=== PATIENT | female | born 1950 | race Caucasian/White ===

== ENCOUNTER → 2016-12-09 | Outpatient (CLI) | payer OTHER, BC | LOC: CIMAGING 10:36 | PROVIDERS: ATTEND Internal Medicine | DX: Z12.31 Encounter for screening mammogram for malignant neoplasm of breast (principal) | CPT/HCPCS: G0202 ==

== ENCOUNTER → 2016-12-18 | Outpatient (CLI) | payer OTHER, BC ==
[~2016-12-18] MED LIST: IOPAMIDOL (ISOVUE-300) 100 ML BTL ONE
== END ==
LOC: CIMAGING 14:10
PROVIDERS: ATTEND Physician Assistant
DX: R39.15 Urgency of urination (principal); N39.0 Urinary tract infection, site not specified; N28.1 Cyst of kidney, acquired; K59.00 Constipation, unspecified
CPT/HCPCS: 74178-PO; Q9967

== ENCOUNTER 2017-04-07 01:58 | Emergency (ER) | payer OTHER, BC ==
[2017-04-07] MEDS ORDERED: LET GEL TOPICAL 1 EA SYR TP ONE (02:04)
[2017-04-07 02:11] VITALS: BP 150/96; PULSE 84; RESP 18; TEMP 98.1; O2SAT 97
[2017-04-07] MEDS ORDERED: TDAP ADULT 0.5 ML INJ (BOOSTRIX) IM ONE (02:11)
--- NOTE | 2017-04-07 02:32 | EDPHY ---
H & P Time Seen by Provider: 04/07/17 02:04 HPI/ROS: Chief complaint: regions to left thumb, right hand and right forearm from family pet HPI: 66-year-old female was trying to her dog over, whom she had just assisted to the bed. The dog then bit her in the left hand and right as well, just HYDRAULIC PRESS IN OPERATOR. Right Handed Injury of the left thumb, dorsum of the right hand, webspace 4 on the right hand , and right forearm , from bite from dog This animal is the family Pet Incident was provoked as the patient was trying to move the dog. This happened at home , occurring just HYDRAULIC PRESS IN OPERATOR . Degree of pain: mild Reports there is some numbness or loss of sensation. To the right little finger distal to the puncture wound present at the 4th web space Contamination: from the dog's mouth FB possibility no Status of the animal: Immunization: Rabies vaccination current Animal is well . Animal is available for observation or testing . Last Td or TDAP: more than 5 years less than 10 years Work: Retired intermediate school teacher Avocation: Enjoying senior living PMHx of things that would suggest poor healing: DM no Peripheral Vascular Disease no RA no SLE no Splenectomy no Immunodeficiency no No penicillin allergy ROS: Neuro: No numbness or tingling or loss of sensation Smoking Status: Never smoked Physical Exam: Gen: Well-developed. Well-nourished. No odor of alcohol. Nontoxic. Afebrile. Extremity: There are multiple wounds present. On the left hand: There are multiple lacerations of a horizontal nature present to the proximal phalanx of the left thumb. None of these are gaping. Total length approximately 4 cm the largest being 1.5 cm, 3 in nature. Distal sensation and cap refill is intact. Full functions of the tendons On the right forearm: There is a dermal tear with partial avulsion of the skin on the dorsum of the forearm which she had cleaned home with tap water and baby soap and is in good position at this time. On the right hand: There is a 6 mm v-shaped tear over the midportion of the hand. This is full- thickness but no active bleeding at this time. Full function of the tendons. On the 4th webspace between the 4th and 5th digits there is a single puncture wound which is not gaping. There is numbness and decreased sensation distally on the radial aspect of the 5th digit. Function: Without signs of tendon dysfunction NV Status: Intact, though she does report numbness as noted above CMS: Intact Constitutional: Initial Vital Signs Temperature (C) 36.7 C 04/07/17 02:08 Heart Rate 84 04/07/17 02:08 Respiratory Rate 18 04/07/17 02:08 Blood Pressure 150/96 H 04/07/17 02:08 O2 Sat (%) 97 04/07/17 02:08 O2 Delivery Mode Room Air Allergies/Adverse Reactions: sulfamethoxazole [From Bactrim] Allergy (Mild, Verified 04/07/17 02:07) Rash trimethoprim [From Bactrim] Allergy (Mild, Verified 04/07/17 02:07) Rash Cephalosporins Allergy (Verified 04/07/17 02:07) Home Medications: Medication Instructions Recorded Digoxin 01/24/14 Flovent Diskus 01/24/14 Synthroid 01/24/14 Verapamil 01/24/14 Amoxicillin/Clavulanate Pot 875 mg PO BID #6 tab 04/07/17 [Augmentin 875 MG TAB (*)] Medical Decision Making Procedures: Digital block: Sterile technique, Chloraseptic prep. 1% xylocaine without epinephrine was injected at the base of the left thumb. Adequate anesthesia. ED Course/Re-evaluation: Wounds were cleansed and dressed by the morgue technician Given the circumstances this would be a high degree of risk for infection. No other wounds or gaping thus suture repair is not necessary. Nor advisable. I reviewed the wound management care results at home and she has a recheck in 2 days. As the dog is up-to-date, and the situation was provoked, this does not meet the threshold criteria for rabies vaccination She was given Augmentin 875 mg here in the ER, as well as a Tdap Differential Diagnosis: Diagnostic considerations include, but are not limited to, the following: Laceration, retained FB, tendon injury, fracture, rabies exposure. - Data Points Medications Given: Discontinued Medications Amoxicillin/Clavulanate Potassium (Augmentin 875mg) 875 mg PO EDNOW ONE PRN Reason: Protocol Stop: 04/07/17 02:36 Last Admin: 04/07/17 02:40 Dose: 875 mg Diphtheria/Tetanus/Acell Pertussis (Boostrix) 0.5 ml IM .ONCE ONE Stop: 04/07/17 02:12 Last Admin: 04/07/17 02:24 Dose: 0.5 ml Departure - Departure Disposition: Home, Routine, Self-Care Clinical Impression: Dog bite of hand Qualifiers: Encounter type: initial encounter Laterality: left Qualified Code(s): S61.452A - Open bite of left hand, initial encounter Dog bite of right forearm Qualifiers: Encounter type: initial encounter Qualified Code(s): S51.851A - Open bite of right forearm, initial encounter Dog bite of right hand Qualifiers: Encounter type: initial encounter Qualified Code(s): S61.451A - Open bite of right hand, initial encounter Puncture wound of hand Qualifiers: Encounter type: initial encounter Foreign body presence: without foreign body Laterality: right Qualified Code(s): S61.431A - Puncture wound without foreign body of right hand, initial encounter Condition: Good Instructions: Amoxicillin/Clavulanate Potassium (By mouth), Animal Bite (ED), Laceration (ED), Puncture Wound (ED) Referrals: Patient,NotPresent [Primary Care Provider] - 1-2 days without fail Prescriptions: Amoxicillin/Clavulanate Pot [Augmentin 875 MG TAB (*)] 875 mg PO BID #6 tab
[2017-04-07] MEDS ORDERED: AMOXICILLIN/CLAVULANATE POT 875/125 MG TAB PO ONE (02:35)
== END 2017-04-07 02:45 | disposition home or self-care (01) ==
LOC: CED 01:58
PROC: 3E0T3BZ Introduction of Anesthetic Agent into Peripheral Nerves and Plexi, Percutaneous Approach (ICD-10-PCS; principal; 2017-04-07)
DX: S61.452A Open bite of left hand, initial encounter (principal); S51.851A Open bite of right forearm, initial encounter; S61.451A Open bite of right hand, initial encounter; S61.431A Puncture wound without foreign body of right hand, initial encounter; Z23 Encounter for immunization; W54.0XXA Bitten by dog, initial encounter

== ENCOUNTER → 2017-07-08 | Outpatient (CLI) | payer OTHER | LOC: CIMAGING 10:07 | PROVIDERS: ATTEND Physician Assistant | DX: R39.15 Urgency of urination (principal); N39.0 Urinary tract infection, site not specified; Z90.710 Acquired absence of both cervix and uterus | CPT/HCPCS: 74178; Q9967 ==

== ENCOUNTER → 2017-11-24 | Outpatient (CLI) | payer OTHER | LOC: CIMAGING 10:14 | PROVIDERS: ATTEND Internal Medicine | DX: Z12.31 Encounter for screening mammogram for malignant neoplasm of breast (principal) ==

== ENCOUNTER → 2017-12-03 | Outpatient (CLI) | payer OTHER | LOC: CIMAGING 13:14 | PROVIDERS: ATTEND Internal Medicine | DX: R92.8 Other abnormal and inconclusive findings on diagnostic imaging of breast (principal) ==

== ENCOUNTER → 2017-12-16 | Outpatient (CLI) | payer OTHER | LOC: CIMAGING 13:17 | PROVIDERS: ATTEND Internal Medicine Critical Care Medicine | DX: J43.2 Centrilobular emphysema (principal); J45.909 Unspecified asthma, uncomplicated; R00.0 Tachycardia, unspecified ==

== ENCOUNTER 2018-03-16 14:09 | Inpatient (IN) | payer OTHER ==
[2018-03-16] MEDS ORDERED: GADOBUTROL 10 ML VIAL IVP ONE (14:39)
[2018-03-16] MEDS ORDERED: ONDANSETRON 4 MG/2 ML VIAL IVP PRN (16:08)
[2018-03-16] MEDS ORDERED: ONDANSETRON DISINTEGRATING 4 MG TAB PO PRN (16:08)
--- NOTE | 2018-03-16 16:35 | PDGENHP ---
History and Physical - Chief Complaint Double vision - History of Present Illness Erna Charles is a 67 yo F with a PMHx of hypothyroidism who presents to [facility] for evaluation of double vision. Patient has been having neurological w/u performed since December 2017 due to neuropathy and weakness in upper and lower extremities. She had imaging of spine which showed DJD but no acute explanation. She was placed on steroids which helped her symptoms with the last dose about a week ago. Since then she has been having headache which is clustered around her L eye with double vision, tearing, and rhinorrhea. She called her neurologist who ordered an MRI for today which had concerning findings so neurology asked for patient to be admitted. History Information - Allergies/Home Medication List Allergies/Adverse Reactions: sulfamethoxazole Allergy (Unknown, Unverified 02/20/18 16:33) Rash trimethoprim Allergy (Unknown, Unverified 02/20/18 16:33) Rash Cephalosporins Allergy (Verified 04/07/17 02:07) Home Medications: FLUoxetine [Prozac 20 MG (*)] 20 mg PO DAILY 03/16/18 [Last Taken Unknown] Fluticasone Nasal [Flonase Nasal [place] (RX)] 1 sprays NASAL DAILY 03/16/18 [ Last Taken Unknown] Fluticasone/Vilanterol [Breo Ellipta 100-25 Mcg INH] 1 each IH 03/16/18 [Last Taken Unknown] Gabapentin [Neurontin 100 MG (*)] 100 mg PO 03/16/18 [Last Taken Unknown] Levothyroxine [Synthroid 125 mcg (*)] 125 mcg PO DAILY06 03/16/18 [Last Taken Unknown] Verapamil ER [[place]an SR/ER 240MG (*)] 240 mg PO DAILY8 03/16/18 [Last Taken Unknown] predniSONE [Prednisone] 20 mg PO 03/16/18 [Last Taken Unknown] I have personally reviewed and updated: family history, medical history, social history, surgical history - Surgical History Reports: no pertinent surgical hx - Family History Additional family history: Sjogrens, Hypothyroidm, RA in sister - Social History Smoking Status: Never smoked Review of Systems Review of Systems: Physical Exam Physical Exam: Assessment & Plan Assessment: Double Vision/ Abnormal MRI Findings - Neuro called to admit patient, has been following patient since December 2017 - MRI performed today shows extensive background white matter disease assoc with 2 small punctate areas of diffusion restruction in R frontal and L parietal regions concerning for possible microinfarctions - Per Neuro there is a concern for vasculitis, serologies have been ordered - CTA Head/Neck also ordered - Neurology considering LP which patient is deferring at this time - 1g Solumedrol ordered by Neurology - Pain medications PRN Hypothyroidism - Continue home Synthroid Unspecified Tachycardia - HR currently 69 - Continue home Verapamil FEN: IVF Ppx: Lovenox Code: FULL Dispo: Admit to Medicine
[2018-03-16] MEDS: methylPREDNISolone SOD SUCC 1 GM in D5W 100 ML IV SCH (18:24)
[2018-03-16] MEDS: ACETAMINOPHEN 325 MG TAB PO PRN (18:24)
[2018-03-16 18:37] LABS: PLATELET COUNT 337 10^3/uL (150-400)
--- NOTE | 2018-03-16 18:48 | GCON ---
NEUROLOGY CONSULTATION REFERRING PHYSICIAN: Wade Seymour DO HISTORY: The patient is a 67-year-old woman who we first saw in the office in December. She started having symptoms 2 months earlier when she said she was working in the yard and feeling generally fine. A few days later, she had neck pain and then left posterior rib cage. Symptoms improved but then she had pain that was deeper and posterior pelvic and lumbar region pain. She was having difficulty with strength in her legs with descriptions of weakness. This gradually progressed to more burning sensation in the posterior thighs. In mid December, she was having numbness in her left anterior thigh and into her toes. On the right side she was also having numbness in her toes and calf. There was burning in her feet as well as the right hand. She was describing stiffness in the wrists. She was not noticing any incontinence. She was feeling some variation of the strength and a little bit better power when she did get to our office January 15. She was not having much of a response to aspirin. She had lumbar spine imaging which did not show anything specific. It was noted that she was certainly dealing with significant stress with her spouse being diagnosed with advanced cancer just a few weeks before her symptoms started. At the time of that visit, we documented that there were no abnormal motor movements. There was not definitive weakness. Sensation was preserved in the upper extremities, and there was perhaps a little decrease in the right calf compared to the left. The reflexes were 2+ in the upper extremities, but absent in the lower extremities, and the cranial nerve exam was unremarkable. We then arranged for her to have EMG, which showed evidence of motor-predominant axonal-type neuropathy raising the possibility of a motor neuropathy or a possible axonal variant of Guillain-[place] syndrome. We saw her again February 19. She was having more back spasms. There was pain in the low back and into the thighs. She was having some feelings of fatigue and dizziness , but quite variable. She had a stretch of about 10 days where she did really well, but then in the last 2 weeks prior to that visit, February 19, she was starting to decline again. She was getting verapamil for atrial tachycardia. Gabapentin was tried for some of the pain, but she was getting lightheaded and stopped it. At that time in the visit, we gave her 3 days of IV Solu-Medrol with 12-day oral taper. The thinking was this might be an autoimmune process or variation of Guillain-[place] syndrome or chronic inflammatory demyelinating polyneuropathy (CIDP). On March 11, she returned to the office. She had significant improvement in symptoms and was feeling more mobile and less spasms in the low back and was not having any pain at that point. She was describing mild double vision. She said some of that predated the use of steroids and gabapentin. She was continuing with physical therapy and reporting some poor balance in general. At that point, the plan was to continue to monitor her off the steroids. She had also had thoracic MRI showing a small disk protrusion at T6-T7, but nothing else specific. She contacted us today in the office and was explaining that she is having severe pain in the left eye intermittently with sharp pains episodically and tearing and runny nose on the left. She is having double vision. She has taken some aspirin but not really noticed significant control of symptoms. We decided to obtain a stat brain MRI and that shows multiple areas of chronic white matter change and then some subtle diffusion abnormalities in the high right frontal lobe and left parietal lobe, suggesting the possibility of more recent ischemic change of an acute nature. 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 Once we had this data obtained, we felt it was appropriate to admit her to the hospital for acute evaluation to consider the possibility of vasculitis or a source of ischemia. PAST MEDICAL HISTORY: Notable for pulmonary aspergillosis, asthma, atrial tachycardia, benign positional vertigo, lumbar disk disease at the L5-S1 level, palpitations, retinal detachment on the left as well as on the right in 1999 and 2009 and a vitreal leak with hemorrhage. She has had hysterectomy, arthroscopic left knee surgery, cataracts, sinus surgery. FAMILY HISTORY: Rheumatoid arthritis in a sister. Father with dementia. Sister with obsessive-compulsive disorder. Father had subdural hematoma. A sister with Sjogren syndrome. Mother had a stroke in her 90s. SOCIAL HISTORY: She is . She has 1 or 2 drinks of alcohol per day on average. She normally exercises with regular walking. She quit smoking in 1972 with a 1 pack per day history. MEDICATION: Aspirin 81 mg daily, Breo Ellipta, Cardizem, Synthroid, verapamil, Xopenex, Estrace, Singulair, Nasonex, calcium. ALLERGIES: Cephalexin, sulfa. PHYSICAL EXAMINATION: VITAL SIGNS: Blood pressure 131/75, pulse of 69, respirations 16, temperature 37.2. HEENT: The pupils are 3 mm and reactive. Extraocular movements are intact, although she complains of double vision in all directions of gaze. No obvious visual field loss or loss of visual acuity. Normal facial sensation and strength. NEURO: The motor exam reveals normal muscle bulk and tone but 4/5 proximal strength in the lower extremities. Sensation is diminished distally in the lower extremities for pinprick, temperature, and vibration. Reflexes are absent at the ankles with no Babinski signs, and trace reflexes at the knees and 1+ in the upper extremities to +2. CARDIAC: Regular rate and rhythm. No murmur. No carotid bruits. Additional history was clarified from the patient. She says that symptoms began 4 days ago when she was having the acute left eye pains and these were coming with 10/10, shooting pain associated with watering of the eye and burning of the left nostril. She would then have residual aching pain which could last for many minutes or hours. She was having these intermittent attacks throughout the last 4 days and getting partial relief when she did Tylenol. She really started having profound double vision in the last 24 hours in all directions of gaze. She has never had this kind of acute attack of pain before. In addition to the previously described differential diagnosis, we may very well also be dealing with a left trigeminal autonomic cephalgia such as cluster headache or SUNCT. These syndromes could occur independently or be associated with a primary inflammatory condition. I reviewed the imaging studies with her and detailed questions about the current workup and diagnostic considerations and treatment approach. We will continue to monitor her closely. The total unit time was 70 minutes. IMPRESSION: The current impression is that the patient is experiencing subacute worsening of a condition that has been evolving over the last few months with suspicion for potential autoimmune etiology based on the clinical story, as well as EMG findings and the fact that she has had initially a fairly good response to steroid therapy. Although nonspecific, there is a strong family history of autoimmune disease in first-degree relatives. She does not currently have a formal rheumatologic diagnosis established. She has asthma. The findings on the brain MRI are concerning for chronic microvascular disease, but also a few nonspecific lesions in the high right frontal and left parietal with some characteristics suggesting possible subacute ischemia. This would further raise concerns about vasculitis, if there is in fact an autoimmune process. To better investigate this, I will obtain CT angiogram of the head and neck. I will likely obtain lumbar puncture as well and consider further empiric therapy with IV steroid and then check an array of inflammatory serum markers, as we try to determine the unifying diagnosis for this fairly broad set of symptoms and findings. /[id number]/MODL and [id number]/MODL JOSHUA
[2018-03-16] MEDS ORDERED: IOPAMIDOL (ISOVUE 370) 100 ML BTL IV ONE (19:06)
--- NOTE | 2018-03-16 21:04 | GCON ---
ADDENDUM: An addendum to my history and physical I started on Erna Charles about 30 minutes ago. PHYSICAL EXAMINATION: VITAL SIGNS: Blood pressure 131/75, pulse of 69, respirations 16, temperature 37.2. HEENT: The pupils are 3 mm and reactive. Extraocular movements are intact, although she complai ns of double vision in all directions of gaze. No obvious visual field loss or loss of visual acuity. Normal facial sensation and strength. NEURO: The motor exam reveals normal muscle bulk and tone but 4/5 proximal strength in the lower extremities. Sensation is diminished distally in the lower extremi ties for pinprick, temperature, and vibration. Reflexes are absent at the ankles with no Babinski sig ns, and trace reflexes at the knees and 1+ in the upper extremities to +2. CARDIAC: Regular rate and rhythm. No murmur. No carotid bruits. Additional history was clarified from the patient. She says that symptoms began 4 days ago when she w as having the acute left eye pains and these were coming with 10/10, shooting pain associated with wa tering of the eye and burning of the left nostril. She would then have residual aching pain which cou ld last for many minutes or hours. She was having these intermittent attacks throughout the last 4 da ys and getting partial relief when she did Tylenol. She really started having profound double vision in the last 24 hours in all directions of gaze. She has never had this kind of acute attack of pain b efore. In addition to the previously described differential diagnosis, we may very well also be dealing with a left trigeminal autonomic cephalgia such as cluster headache or SUNCT. These syndromes could occur independently or be associated with a primary inflammatory condition. I reviewed the imaging studies with her and detailed questions about the current workup and diagnostic considerations and treatment approach. We will continue to monitor her closely. The total unit time was 70 minutes. c/p ITS #[id number] /[id number]/MODL
[2018-03-17] MEDS: ACETAMINOPHEN 325 MG TAB PO PRN ×2 (05:59→17:01)
--- NOTE | 2018-03-17 07:45 | NEUROPROG ---
Assessment: Total unit time of 25 min. The patient is doing better after day 1/3 IV solumedrol. Still considering inflammatory process with increased RF and normal sed rate and borderline elevated CRP. prominent eosinophilia. Not sure of diagnosis and may be in the primary rheumatologic category but still several labs pending. Her improvement is encouraging and doubt vasculitis at this point. White matter lesions not explained yet. Will obtain Echo with bubble study and try to talk to rheumatology. I feel continue hospitalization is appropriate given the severity of symptoms and need for IV steroids though improving so far. Subjective: Pt is reporting that she has not had significant headache or eye pain since admission. She is noting some diplopia that she feels is better. Mild numbness in the right leg. Objective: Vital Signs Temp Pulse Resp BP Pulse Ox 36.9 C 66 16 103/62 94 03/17/18 04:00 03/17/18 04:00 03/17/18 04:00 03/17/18 04:00 03/17/18 04:00 Laboratory Results 03/16/18 18:15 03/16/18 18:15 03/16/18 03/17/18 03/18/18 05:59 05:59 05:59 Intake Total 950 Balance 950 Alert and attentive with clear and fluent speech. Normal cognition. EOMI. facial sensation is preserved Laboratory Tests 03/16/18 03/16/18 18:15 18:15 WBC 9.03 Hct 35.6 L Eos % (Auto) 34.3 H Absolute Eos (auto) 3.10 H ESR 9 C-Reactive Protein 10.6 H Rheum Factor Semi-Quant 82.9 H Mild proximal LE weakness and distal sensory deficits. CTA of head and neck show know evidence of stenosis or vasculitis Allergies/Adverse Reactions: sulfamethoxazole Allergy (Unknown, Verified 03/16/18 18:45) Rash trimethoprim Allergy (Unknown, Verified 03/16/18 18:45) Rash Cephalosporins Allergy (Verified 03/16/18 18:45) Bryant
[2018-03-17] MEDS: methylPREDNISolone SOD SUCC 1 GM in D5W 100 ML IV SCH (08:36)
[2018-03-17] MEDS ORDERED: ENOXAPARIN 40 MG/0.4 ML SYR SC SCH (09:00)
[2018-03-17] MEDS ORDERED: PERFLUTREN LIPID MICROSPHERES 1.1 MG/ML VIAL IV ONE ×2 (10:30→16:15)
--- NOTE | 2018-03-17 11:22 | PDMN ---
Medical Necessity Medical necessity: Pt meets IP criteria per MD; est los >2 mn for eval/tx of worsening double vision & bilateral upper/lower extremity weakness w/abnormal MRI & suspicion of potential autoimmune etiology; requiring further workup/ monitoring, Neuro consult, IV Solu-Medrol & therapies; per H&P & order 03/16/18
[2018-03-17] MEDS ORDERED: NS 1,000 ML IV ONE (12:30)
--- NOTE | 2018-03-17 12:58 | HOSPPROG ---
Hospitalist Progress Note Assessment/Plan: ASSESSMENT: 67yo F with history of pulmonary aspergillosis, asthma, nasal polyps brought in after brain MRI showed extensive background white matter disease associated with 2 small punctate areas of diffusion restriction. Neurology has been seeing her since 12/2017 for onset of various neurologic symptoms including proximal muscle weakness, decreased lower extremity sensation and reflexes. She recently had developed diplopia and severe left facial pain. Prior EMG showed motor-predominant axonal-type neuropathy. Her symptoms have previously responded to high dose steroids. Her MRI did not show optic neuritis or significant evidence of demyelination. Work up here has shown peripheral eosinophilia (which is significantly increased since 2014), significantly elevated RF, mildly elevated CRP, normocytic anemia (which is new from 2013). CTA head/neck did not show evidence of vasculitis. UA is without protein or blood. Per cardiology, TTE shows a small rounded mass in the LV apex. The etiology of these findings remains elusive. Differential includes variant of Guillain-[place], CIDP, Lyme disease, sarcoidosis, paraneoplastic disease. It is unclear to me if her h/o pulmonary aspergillosis, which was not treated as she was not immunocompromised, and new eosinophilia are connected with her neurologic issues. PLAN: - LP planned for tomorrow with routine studies, MS panel, cytology, Lyme antibody screen - ALESSANDRA to evaluate LV mass - Hold on systemic anticoagulation as low suspicion for LV thrombus - Continue 1g IV solumedrol currently day 2/3 with planned taper as outpatient - Follow up anti-CCP, ANCA, JAMMIE, anti-SSa/SSb - Check CK, B1, Lyme serum PCR - Hold ppx LMWH for procedure Dispo: Remain inpatient for management of above, IV steroids. Subjective: Feeling about the same as admission. Still having double vision. No new weakness/numbness or other neuro symptoms.She has noticed some leg swelling since starting steroids. Had trouble sleeping last night. Objective: Vital Signs Temp Pulse Resp BP Pulse Ox 36.4 C 87 18 109/66 99 03/17/18 12:00 03/17/18 12:00 03/17/18 12:00 03/17/18 12:00 03/17/18 12:00 Laboratory Results 03/16/18 18:15 03/16/18 18:15 03/16/18 03/17/18 03/18/18 05:59 05:59 05:59 Intake Total 950 Balance 950 - Physical Exam Constitutional: no apparent distress, appears nourished, not in pain Eyes: other (Right eye patch) Ears, Nose, Mouth, Throat: moist mucous membranes, hearing normal, ears appear normal, no oral mucosal ulcers Cardiovascular: regular rate and rhythym, no murmur, rub, or gallop Respiratory: no respiratory distress, no rales or rhonchi, clear to auscultation Gastrointestinal: normoactive bowel sounds, soft, non-tender abdomen, no palpable masses Skin: no rashes or abrasions, no fluctuance, no induration Musculoskeletal: full muscle strength, no muscle tenderness, normal joint ROM Neurologic: AAOx3, CN II-XII Intact, other (4+/5 strenght in proximal BLE, decreased sensation to light touch in feet, no ankle clonus, diminished but symmetric patellar reflexes bilaterally) Psychiatric: interacting appropriately, not anxious, not encephalopathic, thought process linear ICD10 Worksheet Patient Problems: Problems Problem Status Onset Diplopia Acute Headache around the eyes Acute
[2018-03-17] MEDS: LEVOTHYROXINE 125 MCG TAB PO SCH (13:32)
[2018-03-17] MEDS: Fluticasone/Vilanterol [Breo Ellipta 100-25 Mcg Inh] 1 EACH IH SCH (14:24)
[2018-03-17] MEDS: VERAPAMIL ER 240 MG TAB PO SCH (14:25)
--- NOTE | 2018-03-17 14:27 | ASMTCMCOM ---
CM Note CM Note Notes: Pt in for possible vasculitis after double vision/abnormal MRI. Pt has neurologist Pt on day 1/3 of IV steroid. Pt resides with spouse who can assist at d/c. OT rec home/outpatient, PT rec home. FC identified pt has Medicare B only and [place] [employer]. Pt likely independent d/c. CM available for changes/needs. Date Signed: 03/17/2018 02:26 PM Electronically Signed By:DAVID Ariza
--- NOTE | 2018-03-17 15:34 | ECHO ---
[email or web address] [address] [address] Main: [phone] Fax: Transthoracic Echocardiogram Name: ELISE BOB MR#: [id number] Study Date: 03/17/2018 Study Time: 10:04 AM Date of : 1950 Age: 67 year(s) Height: 167.6 cm (66 in.) Weight: 62.6 kg (138 lb.) BSA: 1.71 m2 Gender: Female Examination: Echo with Definity Indication: headache and diplopia and white matter brain lesions of unknown cause Image Quality: Adequate Contrast: 0.165 mg I.V. dose of Definity was administered to improve endocardial border definition. Requested by: Thiago Perla BP: 113 mmHg/68 mmHg Heart Rate: Rhythm: Indication: headache and diplopia and white matter brain lesions of unknown cause Procedure Staff Air Motor Repairer: Tasha Browning [facility] Reading Physician: Sruthi Cui MD Requesting Provider: Conclusions: Normal size left ventricle. No LV hypertrophy. Normal global systolic LV function. The ejection fraction is visually estimated to be 55 %. No regional wall motion abnormality. Normal diastolic LV function. With Definity contrast imaging, there is a rounded semi-mobile lesion in the LV apex. This could be normal endocardium, LV thrombus, or other mass. Recommend ALESSANDRA for further evaluation. Normal size right ventricle. Normal RV function. An agitated saline study was performed and was negative for intracardiac shunting. Mild mitral valve regurgitation is present. Mild tricuspid regurgitation is present. Right ventricular systolic pressure measures 31mmHg. no prior study. Measurements: Chambers Valvular Assessment AV/MV Valvular Assessment TV/PV Normal Normal Normal Name Value Range Name Value Range Name Value Range Ao Camryn (2D): 2.6 cm (1.4 cm-2.6 AV Vmax: 1.37 m/s (1 m/s-1.7 TR Vmax: 2.57 mm/s ( - ) cm) m/s) TR PGmax: 26 mmHg ( - ) IVSd (2D): 0.9 cm (0.6 cm-1.1 AV maxP mmHg ( - ) syst. PAP: 31 mmHg ( - ) cm) AV meanP mmHg ( - ) PV Vmax: 0.95 m/s (0.6 m/s-0.9 LVDd (2D): 4.7 cm (3.9 cm-5.3 HUNG (VTI): 2.4 cm ( - ) m/s) cm) MV E Vmax: 0.80 m/s ( - ) PV PGmax: 4 mmHg ( - ) MV A Vmax: 0.72 m/s ( - ) Patient: ELISE BOB Study Date: 03/17/2018 Page 1 of 3 10:04 AM LVDs (2D): 3.0 cm (2.1 cm-4 MV E/A: 1.11 ( - ) cm) MV PHT: 0.064 s ( - ) LVPWd (2D): 0.9 cm ( - ) MVA (PHT): 3.4 s ( - ) LVOTd 2.0 cm 2.0 cm mm LVEF (MOD4): 64 % (>=55 %) Visual EF: 55 % RVDd(2D): 2.8 cm (1.9 cm-3.8 cmmm) Continued Measurements: Chambers Valvular Assessment AV/MV Valvular Assessment TV/PV Name Value Name Value Name Value LADs: 3.9 cm MV DecTime: 225 m/s CVP (est.): 5 mmHg LADs Lon.2 cm MV E' Septal: 0.10 m/s LA Area: 17.0 cm2 MV E/E' Septal: 8.10 RA Area: 16.3 cm2 MV E/E' Lateral: 5.40 Additional Vessels Name Value Ao Ascendin.9 cm Inferior Vena Cava: 1.2 cm Findings: Left Ventricle: Normal size left ventricle. No LV hypertrophy. Normal global systolic LV function. The ejection fraction is visually estimated to be 55 %. No regional wall motion abnormality. Normal diastolic LV function. With Definity contrast imaging, there is a rounded semi-mobile lesion in the LV apex. This could be normal endocardium, LV thrombus, or other mass. Recommend ALESSANDRA for further evaluation. Right Ventricle: Normal size right ventricle. Normal RV function. Left Atrium: The left atrium is normal in size. An agitated saline study was performed and was negative for intracardiac shunting. Right Atrium: The right atrium is normal in size. Mitral Valve: The mitral valve is normal in appearance and function. Mild mitral valve regurgitation is present. No mitral stenosis is present. Aortic Valve: The aortic valve is tri-leaflet. There is no significant aortic valve regurgitation. No aortic valve stenosis is present. Tricuspid Valve: The tricuspid valve is normal in appearance and function. Mild tricuspid regurgitation is present. The pulmonary artery pressure is normal. Right ventricular systolic pressure measures 31mmHg. Pulmonic Valve: The pulmonic valve is normal in appearance and function. Trivial pulmonic valve regurgitation. Aorta: The aorta is normal. Normal size aortic root measuring 2.6 cm. Normal size ascending aorta measuring 2.9 cm. IVC: The IVC is normal sized. Pericardium: No pericardial effusion. No pleural effusion. Patient: ELSIE BOB Study Date: 03/17/2018 Page 2 of 3 10:04 AM (No Signature Object) Patient: ELISE BOB Study Date: 03/17/2018 Page 3 of 3 10:04 AM [id number]
--- NOTE | 2018-03-17 15:47 | PDANEPAE ---
ANE Past Medical History - Cardiovascular History Hx Hypertension: No Hx Arrhythmias: Yes Hx Chest Pain: No Hx Coronary Artery / Peripheral Vascular Disease: No Hx CHF / Valvular Disease: No Hx Palpitations: Yes - Pulmonary History Hx COPD: No Hx Asthma/Reactive Airway Disease: Yes Hx Recent Upper Respiratory Infection: No Hx Oxygen in Use at Home: No Hx Sleep Apnea: No Sleep Apnea Screening Result - Last Documented: Negative - Neurologic History Neurologic History Comment: Guillain-Morrilton syndrome, recent, improving - Endocrine History Hx Diabetes: No Obesity: no ANE Review of Systems Review of Systems: ANE Patient History - Allergies Allergies/Adverse Reactions: sulfamethoxazole Allergy (Unknown, Verified 03/16/18 18:45) Rash trimethoprim Allergy (Unknown, Verified 03/16/18 18:45) Rash Cephalosporins Allergy (Verified 03/16/18 18:45) Hives - Home Medications Home medications: home medication list seen and reviewed Home Medications: Aspirin EC [Aspirin EC 81 mg (*)] 81 mg PO MOWEFR 03/16/18 [Last Taken Unknown] Fluticasone/Vilanterol [Breo Ellipta 100-25 Mcg INH] 1 each IH DAILY 03/16/18 [ Last Taken 03/16/18] Herbals/Supplements -Info Only 1 ea PO DAILY 03/16/18 [Last Taken Unknown] Levothyroxine [Synthroid 125 mcg (*)] 125 mcg PO DAILY06 03/16/18 [Last Taken ] Montelukast Sodium [Singulair 10 mg (*)] 10 mg PO DAILY@1800 03/16/18 [Last Taken 03/15/18] Multivitamins [Multivitamin (*)] 1 each PO DAILY 03/16/18 [Last Taken Unknown] Verapamil ER [Calan SR/ER 240MG (*)] 240 mg PO DAILY8 03/16/18 [Last Taken 03/16] - NPO status NPO Since - Liquids (Date): 03/17/18 NPO Since - Liquids (Time): 10:00 NPO Since - Solids (Date): 03/17/18 NPO Since - Solids (Time): 08:30 - Anes Hx Anes Hx: no prior problems - Smoking Hx Smoking Status: Former smoker ANE Labs/Vital Signs - Labs Result Diagrams: 03/16/18 18:15 09/24/18 18:15 - Vital Signs Blood Pressure: 109/66 Heart Rate: 87 Respiratory Rate: 18 O2 Sat (%): 99 Height: 167.64 cm Weight: 62.596 kg ANE Physical Exam - Airway Neck exam: FROM Mallampati Score: Class 2 Mouth exam: normal dental/mouth exam - Pulmonary Pulmonary: no respiratory distress, no rales or rhonchi, clear to auscultation - Cardiovascular Cardiovascular: regular rate and rhythym, no murmur, rub, or gallop - ASA Status ASA Status: III ANE Anesthesia Plan Anesthesia Plan: MAC
[2018-03-17] MEDS ORDERED: fentaNYL 100 MCG/2 ML INJ IVP PRN (15:55)
[2018-03-17] MEDS ORDERED: PROMETHAZINE HCL 25 MG/ML INJ IVP PRN (15:55)
[2018-03-17] MEDS ORDERED: NALOXONE HCL 0.4 MG/ML INJ IVP PRN (15:55)
[2018-03-17] MEDS ORDERED: ONDANSETRON 4 MG/2 ML VIAL IVP PRN (15:55)
[2018-03-17] MEDS ORDERED: ACETAMINOPHEN 500 MG TAB PO PRN (15:55)
--- NOTE | 2018-03-17 16:05 | PDHPUP ---
History & Physical Update H&P update statement: This history and physical update is based on an assessment of the patient which was completed after admission or registration (within 24 hours), but prior to the surgery/procedure. H&P update: H&P reviewed & patient examined, no change in patient's condition since H&P completed (Reviewed Dr. Seymour's H and P dated 03/16/2018)
[2018-03-17] MEDS ORDERED: PROPOFOL 200 MG/20 ML VIAL ONE ×2 (16:07)
--- NOTE | 2018-03-17 16:40 | POSTANESTH ---
Post Anesthetic Evaluation Cardiovascular Status: Normal, Stable, Similar to Pre-Op Cond Respiratory Status: Normal, Stable, Similar to Pre-op Cond. Level of Consciousness/Mental Status: Can Participate in Eval, Alert and Oriented Pain Control: Adequate, Prn Tx Ordered Nausea/Vomiting Control: Adequate, Prn Tx Ordered Complications Possibly Related to Anesthesia: None Noted
--- NOTE | 2018-03-17 17:10 | ECHO ---
[email or web address] [address] [address] Main: [phone] Fax: Transesophageal Echocardiography Name: ELISE BOB MR#: [id number] Study Date: 03/17/2018 Study Time: 03:59 PM Date of : 1950 Age: 67 year(s) Height: ( ) Weight: ( ) BSA: Gender: Female Examination: ALESSANDRA Indication: possible LV mass Image Quality: Adequate Contrast: 0.165 mg I.V. dose of Definity was administered to improve endocardial border definition. Requested by: Sruthi Cui Heart Rate: Rhythm: BP: / Procedure Staff Computer Terminal Operator: Tasha Browning [facility] Reading Physician: Sruthi Cui MD Requesting Provider: Thiago Perla ALESSANDRA Exam Details Contrast: 0.165 mg I.V. dose of Definity was administered to improve endocardial border definition. Conclusions: Normal global systolic LV function. No regional wall motion abnormality. There is a density in the LV apex most likely consistent with thickened endocardium or trabeculation (normal variant). However, thrombus or LV mass cannot be ruled out. Definity was used to enhance endocardial border definition. Normal size right ventricle. Normal RV function. An agitated saline study was performed and was negative for intracardiac shunting. No thrombus in left appendage. Mild mitral valve regurgitation is present. Mild tricuspid regurgitation is present. Results discussed with Dr. Perla. Recommend cardiac MRI for more definitive evaluation Measurements: Chambers Valvular Assessment AV/MV Valvular Assessment TV/PV Normal Normal Normal Name Value Range Name Value Range Name Value Range Additional Measurements: Patient: ELISE BOB Study Date: 03/17/2018 Page 1 of 2 03:59 PM Findings: Left Ventricle: Normal size left ventricle. Normal global systolic LV function. No regional wall motion abnormality. There is a density in the LV apex most likely consistent with thickened endocardium or trabeculation (normal variant). However, thrombus or LV mass cannot be ruled out. Definity was used to enhance endocardial border definition. Right Ventricle: Normal size right ventricle. Normal RV function. Left Atrium: An agitated saline study was performed and was negative for intracardiac shunting. Left Atrial Appendage: The left atrial appendage is unilobular. Good color flow doppler in the left atrial appendage. No thrombus in left appendage. Mitral Valve: The mitral valve is normal in appearance and function. Mild mitral valve regurgitation is present. Aortic Valve: The aortic valve is tri-leaflet. There is no significant aortic valve regurgitation. Tricuspid Valve: The tricuspid valve is normal in appearance and function. Mild tricuspid regurgitation is present. Pulmonic Valve: The pulmonic valve is normal in appearance and function. l1n (No Signature Object) Patient: ELISE BOB Study Date: 03/17/2018 Page 2 of 2 03:59 PM [id number]
[2018-03-17] MEDS ORDERED: MONTELUKAST SODIUM 10 MG TAB PO SCH (18:00)
[2018-03-17] MEDS ORDERED: MELATONIN 3 MG TAB PO PRN (18:13)
[2018-03-18 04:38] LABS: PLATELET COUNT 292 10^3/uL (150-400)
[2018-03-18 04:59] LABS: CREATINE KINASE 21 IU/L (0-156)
[2018-03-18] MEDS: LEVOTHYROXINE 125 MCG TAB PO SCH (05:08)
[2018-03-18] MEDS: ACETAMINOPHEN 325 MG TAB PO PRN (06:36)
[2018-03-18] MEDS: methylPREDNISolone SOD SUCC 1 GM in D5W 100 ML IV SCH (08:15)
[2018-03-18] MEDS: VERAPAMIL ER 240 MG TAB PO SCH (08:19)
--- NOTE | 2018-03-18 08:47 | NEUROPROG ---
Assessment: Total unit time of 25 min. The patient is doing better after day 1/3 IV solumedrol. Still considering inflammatory process with increased RF and normal sed rate and borderline elevated CRP. prominent eosinophilia. Not sure of diagnosis and may be in the primary rheumatologic category but still several labs pending. Her improvement is encouraging and doubt vasculitis at this point. White matter lesions not explained yet. Will obtain Echo with bubble study and try to talk to rheumatology. I feel continue hospitalization is appropriate given the severity of symptoms and need for IV steroids though improving so far. 03/18/18: At this point, this will be the 3rd day of IV steroids for the patient and she is doing much better but we are going to complete the workup with lumbar puncture to look for any occult pathology. Autoimmunity is the working diagnosis right now but we do not have a more precise diagnosis. Cardiac lesion is thought to be benign but we will get clarification with an MRI of the heart if possible. I do not feel she should be put on anticoagulation. We will continue to await the results of further labs but if everything is stable by the end of the day she could be discharged and continue outpatient steroids. Total unit time today of 25 min. Subjective: This morning, the patient tells me that her double vision has had periods of complete resolution but still not gone all of the time. She is not having any significant pain. No new neurologic symptoms have arisen. Objective: Vital Signs Temp Pulse Resp BP Pulse Ox 36.7 C 82 15 125/72 H 99 03/18/18 07:29 03/18/18 07:29 03/18/18 07:29 03/18/18 08:19 03/18/18 07:29 Laboratory Results 03/18/18 04:26 03/16/18 18:15 03/17/18 03/18/18 03/19/18 05:59 05:59 05:59 Intake Total 950 800 500 Balance 950 800 500 She is alert and fully oriented with no cognitive impairment. Extraocular movements are intact and she did not have double vision in virtually any direction of gaze except for occasional positions such as looking down and toward the left. The additional laboratory studies so far coming back negative outside of the elevated rheumatoid factor we ordered some additional labs. The echocardiogram is showing a possible lesion in the ventricle but more likely a benign left ventricular change for which we plan to obtain cardiac MR I. Allergies/Adverse Reactions: sulfamethoxazole Allergy (Unknown, Verified 03/16/18 18:45) Rash trimethoprim Allergy (Unknown, Verified 03/16/18 18:45) Rash Cephalosporins Allergy (Verified 03/16/18 18:45) Hives
[2018-03-18] MEDS ORDERED: GADOBUTROL 10 ML VIAL IVP ONE (09:08)
[2018-03-18] MEDS: Fluticasone/Vilanterol [Breo Ellipta 100-25 Mcg Inh] 1 EACH IH SCH (09:23)
[2018-03-18 12:18] LABS: INR 1.06 (0.83-1.16)
[2018-03-18] MEDS ORDERED: LIDOCAINE 1% 300 MG/30 ML SDV ONE (13:04)
[2018-03-18 15:35] VITALS: BP 106/63
--- NOTE | 2018-03-18 16:07 | HOSPPROG ---
Hospitalist Progress Note Assessment/Plan: Assessment/Plan: ASSESSMENT: 67yo F with history of pulmonary aspergillosis, asthma, nasal polyps brought in after brain MRI showed extensive background white matter disease associated with 2 small punctate areas of diffusion restriction. Neurology has been seeing her since 12/2017 for onset of various neurologic symptoms including proximal muscle weakness, decreased lower extremity sensation and reflexes. She recently had developed diplopia and severe left facial pain. Prior EMG showed motor-predominant axonal-type neuropathy. Her symptoms have previously responded to high dose steroids. Her MRI did not show optic neuritis or significant evidence of demyelination. Work up here has shown peripheral eosinophilia (which is significantly increased since 2014), significantly elevated RF, mildly elevated CRP, normocytic anemia (which is new from 2013). CTA head/neck did not show evidence of vasculitis. UA is without protein or blood. Per cardiology, TTE shows a small rounded mass in the LV apex. The etiology of these findings remains elusive. Differential includes variant of Guillain-Sutton, CIDP, Lyme disease, sarcoidosis, paraneoplastic disease. It is unclear to me if her h/o pulmonary aspergillosis, which was not treated as she was not immunocompromised, and new eosinophilia are connected with her neurologic issues. PLAN: - LP planned for tomorrow with routine studies, MS panel, cytology, Lyme antibody screen - ALESSANDRA to evaluate LV mass - Hold on systemic anticoagulation as low suspicion for LV thrombus - Continue 1g IV solumedrol currently day 2/3 with planned taper as outpatient - Follow up anti-CCP, ANCA, JAMMIE, anti-SSa/SSb - Check CK, B1, Lyme serum PCR - Hold ppx LMWH for procedure Dispo: will likely discharge today with the plan to f/u with Neurology in 1-2 weeks and cont a long steroid taper. She previously failed a steroid taper 5 days after it ended and therefore the duration of this one will be longer. Cardiac MRI is pending. Subjective: hoping to discharge. no cp or sob. Objective: Vital Signs Temp Pulse Resp BP Pulse Ox 36.9 C 77 15 106/63 90 L 03/18/18 15:35 03/18/18 15:35 03/18/18 15:35 03/18/18 15:35 03/18/18 15:35 Laboratory Results 03/18/18 04:26 03/16/18 18:15 03/17/18 03/18/18 03/19/18 05:59 05:59 05:59 Intake Total 794 094 6676 Balance 416 835 2342 PT 14.0 SEC (12.0-15.0) 03/18/18 11:30 INR 1.06 (0.83-1.16) 03/18/18 11:30 - Physical Exam Constitutional: no apparent distress Eyes: PERRL Ears, Nose, Mouth, Throat: moist mucous membranes, hearing normal, ears appear normal Cardiovascular: regular rate and rhythym Respiratory: no respiratory distress Gastrointestinal: normoactive bowel sounds, soft, non-tender abdomen Skin: warm Neurologic: AAOx3 Psychiatric: interacting appropriately, not anxious, not encephalopathic Lymph, Heme, Immunologic: No petechiae ICD10 Worksheet Patient Problems: Problems Problem Status Onset Diplopia Acute Headache around the eyes Acute
--- NOTE | 2018-03-18 16:28 | PDDCSUM ---
Discharge Summary Discharge Summary: 67yo F with history of pulmonary aspergillosis, asthma, nasal polyps brought in after brain MRI showed extensive background white matter disease associated with 2 small punctate areas of diffusion restriction. Neurology has been seeing her since 12/2017 for onset of various neurologic symptoms including proximal muscle weakness, decreased lower extremity sensation and reflexes. She recently had developed diplopia and severe left facial pain. Prior EMG showed motor- predominant axonal-type neuropathy. Her symptoms have previously responded to high dose steroids. Her MRI did not show optic neuritis or significant evidence of demyelination. Work up here has shown peripheral eosinophilia (which is significantly increased since 2014), significantly elevated RF, mildly elevated CRP, normocytic anemia (which is new from 2013). CTA head/neck did not show evidence of vasculitis. UA is without protein or blood. Per cardiology, TTE shows a small rounded mass in the LV apex. The etiology of these findings remains elusive. Differential includes variant of Guillain-Hersey, CIDP, Lyme disease, sarcoidosis, paraneoplastic disease. It is unclear to me if her h/o pulmonary aspergillosis, which was not treated as she was not immunocompromised, and new eosinophilia are connected with her neurologic issues. She was admitted and started on IV steroids with improvement of her symptoms. She had a LP done today and results will need to be followed per below. At this point she does not have any acute neuro symptoms, her diplopia has resolved, she has no nuchal rigidity, VSS, and neuro deficits. during her w/u a TTE showed a LV mass. This was further evaluated by a ALESSANDRA and a cardiac MRI today. I discussed with the Radiologist that the MRI is c/w with this being a normal trabeculae; no abnormal mass was found and no further w/u is needed. She will discharge today and needs to have the following done: -f/u with Neurology in 1-2 weeks - LP studies pending are, MS panel, cytology, Lyme antibody screen -steroid taper - Follow up anti-CCP, ANCA, JAMMIE, anti-SSa/SSb - Check CK, B1, Lyme serum PCR DDX: -Diplopia -MCKEON -GENERALIZED WEAKNESS -UNSPECIFIED AUTOIMMUNE DISEASE -LEFT FACIAL PAIN exam NAD AAOX3 RRR CTA B S/NT/ND MEDS: SEE MED REC F/U: PER ABOVE TOTAL TIME SPENT ON D/C IS 35 MINS
--- NOTE | 2018-03-18 16:43 | ASMTLACE ---
LACE Length of stay for Answers: 2 days current admission Acuity / Level of Answers: Yes Care: Did the patient have an inpatient admission? Comorbidities - select Answers: Other Notes: Hypothyroid; Asthma all that apply # of Emergency department Answers: 0 visits in the last 6 months Score: 6 Date Signed: 03/18/2018 04:43 PM Electronically Signed By:DAVID Ariza
[2018-03-20 17:01] LABS: BORRELIA BURGDORFERI BY PCR NEGATIVE (Negative); SPECIMEN SOURCE CSF
== END 2018-03-18 17:45 | disposition home or self-care (01) | DRG 546 ==
LOC: FIMAGING 14:09 → F3E 16:08 → F3N 16:44
PROVIDERS: ADMIT Internal Medicine; ATTEND Family Medicine
PROC: B246ZZ4 Ultrasonography of Right and Left Heart, Transesophageal (ICD-10-PCS; 2018-03-17)
PROC: 009U3ZX Drainage of Spinal Canal, Percutaneous Approach, Diagnostic (ICD-10-PCS; principal; 2018-03-18)
DX: M35.9 Systemic involvement of connective tissue, unspecified (principal); R90.82 White matter disease, unspecified; I47.1 Supraventricular tachycardia; M62.81 Muscle weakness (generalized); R20.8 Other disturbances of skin sensation; R29.2 Abnormal reflex; G62.9 Polyneuropathy, unspecified; D72.1 Eosinophilia; D64.9 Anemia, unspecified; E03.9 Hypothyroidism, unspecified; H53.2 Diplopia; J45.909 Unspecified asthma, uncomplicated; R93.8 Abnormal findings on diagnostic imaging of other specified body structures; Z84.89 Family history of other specified conditions
CPT/HCPCS: 82784-90; 83516-90; 83520-90; 83916-90; 86235-90; 86618-90; 87476-90; 97161-GP; 97165-GO; 97535-GO; A9585; G8978-GP-CH; G8979-GP-CH; G8980-GP-CH; G8987-GO-CI; G8988-GO-CI; G8989-GO-CI; J1650; J2704; J2930; Q9957; Q9967

== ENCOUNTER → 2018-08-27 | Outpatient (CLI) | payer OTHER | LOC: CIMAGING 10:30 | PROVIDERS: ATTEND Urology | DX: N28.89 Other specified disorders of kidney and ureter (principal) | CPT/HCPCS: 76770-PO ==

== ENCOUNTER → 2018-11-25 | Outpatient (CLI) | payer OTHER | LOC: CIMAGING 11:16 ==

== ENCOUNTER → 2018-12-18 | Outpatient (CLI) | payer OTHER | LOC: CIMAGING 11:13 ==